=== PATIENT | male | born 1970 | race Caucasian/White ===

== ENCOUNTER 2017-10-14 17:11 | Emergency (ER) | payer OTHER ==
[~2017-10-14] VITALS: Ht 172.7 cm; Wt 77.1 kg
[~2017-10-14 17:11] MED LIST: AMPICILLIN TRI500 MG PO; CATAFLAM50 MG PO; PERCOCET 5/3251 TAB PO; POLY119PG PO
[2017-10-14] MEDS ORDERED: LOSARTAN POTASS25 MG (18:24)
[2017-10-14] MEDS ORDERED: [UNRECOGNIZED DRUG - OTHER] (18:25)
== END 2017-10-14 20:52 | disposition home or self-care (01) ==
LOC: ER 17:11
DX: B34.9 Viral infection, unspecified (principal); J11.1 Influenza due to unidentified influenza virus with other respiratory manifestations

== ENCOUNTER 2017-10-31 10:28 | Outpatient (CLI) | payer OTHER ==
[~2017-10-31 10:28] MED LIST changes: +LOSARTAN POTASS25 MG; +[UNRECOGNIZED DRUG - OTHER]
== END 2017-10-31 11:00 | disposition home or self-care (01) ==
LOC: LAB 10:28
DX: C90.00 Multiple myeloma not having achieved remission (principal); E78.1 Pure hyperglyceridemia; E21.2 Other hyperparathyroidism; E78.00 Pure hypercholesterolemia, unspecified; E03.8 Other specified hypothyroidism; E11.9 Type 2 diabetes mellitus without complications; A64 Unspecified sexually transmitted disease; E21.5 Disorder of parathyroid gland, unspecified; I10 Essential (primary) hypertension; R97.21 Rising PSA following treatment for malignant neoplasm of prostate

== ENCOUNTER 2017-10-31 11:50 | Outpatient (CLI) | payer OTHER | END 2017-10-31 15:00 | disposition home or self-care (01) | LOC: RAD 11:50 | DX: M54.2 Cervicalgia (principal) ==

== ENCOUNTER 2017-11-19 14:30 | Outpatient (CLI) | payer OTHER | END 2017-11-19 15:00 | disposition home or self-care (01) | LOC: NUCLEAR 14:30 | DX: M81.0 Age-related osteoporosis without current pathological fracture (principal) ==

== ENCOUNTER 2018-06-24 18:44 | Emergency (ER) | payer OTHER ==
[~2018-06-24] VITALS: Ht 172.7 cm; Wt 77.1 kg
== END 2018-06-24 22:42 | disposition home or self-care (01) ==
LOC: ER 18:44
DX: B34.9 Viral infection, unspecified (principal); J11.1 Influenza due to unidentified influenza virus with other respiratory manifestations

== ENCOUNTER 2018-08-03 15:57 | Emergency (ER) | payer OTHER ==
[~2018-08-03] VITALS: Ht 172.7 cm; Wt 74.8 kg
[2018-08-03] MEDS ORDERED: OSEL75CA PO (19:23)
[2018-08-03] MEDS ORDERED: PROMETHAZINE W473 ML PO (19:24)
== END 2018-08-03 19:49 | disposition home or self-care (01) ==
LOC: ER 15:57
DX: B34.9 Viral infection, unspecified (principal)

== ENCOUNTER 2018-11-09 17:25 | Emergency (ER) | payer OTHER ==
[~2018-11-09] VITALS: Ht 172.7 cm; Wt 75.7 kg
[~2018-11-09 17:25] MED LIST changes: +OSEL75CA PO; +PROMETHAZINE W473 ML PO
== END 2018-11-09 21:19 | disposition home or self-care (01) ==
LOC: ER 17:25
DX: S60.021A Contusion of right index finger without damage to nail, initial encounter (principal); W23.0XXA Caught, crushed, jammed, or pinched between moving objects, initial encounter; Y93.89 Activity, other specified; Y92.89 Other specified places as the place of occurrence of the external cause; Y99.8 Other external cause status

== ENCOUNTER 2019-05-25 17:23 | Emergency (ER) | payer OTHER ==
[~2019-05-25] VITALS: Ht 172.7 cm; Wt 72.6 kg
== END 2019-05-25 21:07 | disposition home or self-care (01) ==
LOC: ER 17:23
DX: B34.9 Viral infection, unspecified (principal)

== ENCOUNTER 2019-05-27 10:57 | Inpatient (IN) | payer OTHER ==
[~2019-05-27] VITALS: Ht 22.9 cm; Wt 77.1 kg
[2019-06-02] MEDS ORDERED: MONTELUKAST SOD10 MG PO (11:13)
[2019-06-02] MEDS ORDERED: PANTOPRAZOLE SO40 MG PO (11:13)
[2019-06-02] MEDS ORDERED: GENVOYA TABLET1 EACH PO (11:13)
[2019-06-02] MEDS ORDERED: ZOFRAN8 MG PO (17:24)
[2019-06-02] MEDS ORDERED: BALANCE B-1001 EACH PO (17:24)
[2019-06-02] MEDS ORDERED: MULTI-VITAMIN1 EACH PO (17:24)
== END 2019-06-02 17:51 | disposition home or self-care (01) | DRG 445 ==
LOC: ER 10:57 → SEC-K 21:06 → MEDJ 05-28 16:07 → SEC-K 05-28 16:19 → MEDJ 05-28 17:01
PROVIDERS: ADMIT Internal Medicine Cardiovascular Disease
PROC: BW21ZZZ Computerized Tomography (CT Scan) of Abdomen and Pelvis (ICD-10-PCS; principal; 2019-05-27)
PROC: BW40ZZZ Ultrasonography of Abdomen (ICD-10-PCS; 2019-05-27)
PROC: BF37ZZZ Magnetic Resonance Imaging (MRI) of Pancreas (ICD-10-PCS; 2019-05-28)
PROC: 8E0ZXY6 Isolation (ICD-10-PCS; 2019-05-28)
DX: K83.1 Obstruction of bile duct (principal); B20 Human immunodeficiency virus [HIV] disease; E80.6 Other disorders of bilirubin metabolism; N32.89 Other specified disorders of bladder

== ENCOUNTER → 2020-03-19 13:09 | Outpatient (CLI) | payer OTHER ==
[~2020-03-19 13:09] MED LIST changes: +BALANCE B-1001 EACH PO; +GENVOYA TABLET1 EACH PO; +MONTELUKAST SOD10 MG PO; +MULTI-VITAMIN1 EACH PO; +PANTOPRAZOLE SO40 MG PO; +ZOFRAN8 MG PO
== END | disposition home or self-care (01) ==
LOC: LAB 13:09 → RAD 13:09
PROVIDERS: ATTEND Internal Medicine Cardiovascular Disease
DX: I10 Essential (primary) hypertension (principal)

== ENCOUNTER 2021-03-17 15:42 | Outpatient (CLI) | payer OTHER | END 2021-03-17 15:49 | disposition home or self-care (01) | LOC: RAD 15:42 | PROVIDERS: ATTEND Internal Medicine Cardiovascular Disease | DX: I10 Essential (primary) hypertension (principal); R05 Cough ==

== ENCOUNTER 2022-08-19 15:20 | Emergency (ER) | payer OTHER ==
[~2022-08-19] VITALS: Ht 172.7 cm; Wt 70.3 kg
== END 2022-08-19 18:57 | disposition home or self-care (01) ==
LOC: ER 15:20
DX: R51.9 Headache, unspecified (principal)

== ENCOUNTER 2022-10-31 13:33 | Outpatient (CLI) | payer OTHER | END 2022-10-31 13:45 | disposition home or self-care (01) | LOC: SONOGRAMA 13:33 | DX: B20 Human immunodeficiency virus [HIV] disease (principal); N20.0 Calculus of kidney ==

== ENCOUNTER 2022-12-18 08:54 | Outpatient (CLI) | payer OTHER | END 2022-12-18 09:07 | disposition home or self-care (01) | LOC: SONOGRAMA 08:54 | DX: N42.0 Calculus of prostate (principal) ==

== ENCOUNTER 2023-03-20 12:52 | Outpatient (CLI) | payer OTHER | END 2023-03-20 12:55 | disposition home or self-care (01) | LOC: LAB 12:52 | DX: R10.30 Lower abdominal pain, unspecified (principal) ==

== ENCOUNTER 2023-03-26 07:37 | Outpatient (CLI) | payer OTHER | END 2023-03-26 07:44 | disposition home or self-care (01) | LOC: TOM 07:37 | PROVIDERS: ATTEND Internal Medicine Cardiovascular Disease | DX: N20.2 Calculus of kidney with calculus of ureter (principal) ==

== ENCOUNTER 2023-06-06 16:16 | Emergency (ER) | payer OTHER ==
[~2023-06-06] VITALS: Ht 172.7 cm; Wt 68.9 kg
[2023-06-06] MEDS ORDERED: BIKTARVY 30-121 EACH (16:40)
[2023-06-06 19:06] LABS: HEMATOCRIT 45.1 % (39.0-48.0); HEMOGLOBIN 15.2 g/dL (13-16.00); MEAN CELL VOLUME 94.3 fL (80.0-100.00); MEAN CORPUSCULAR HEMOGLOBIN 31.7 pg (27.00-32.0); MEAN CORPUSCULAR HGB CONC 33.6 g/dl (32.0-36.0); PLATELET COUNT 164 K/uL (150-450); RED BLOOD COUNT 4.79 M/uL (4.00-6.00); RED CELL DISTRIBUTION WIDTH 14.5 % (11.5-14.5)
== END 2023-06-06 19:58 | disposition home or self-care (01) ==
LOC: ER 16:16
PROVIDERS: General Practice
DX: J11.1 Influenza due to unidentified influenza virus with other respiratory manifestations (principal); Z20.822 Contact with and (suspected) exposure to COVID-19; I10 Essential (primary) hypertension

== ENCOUNTER 2024-11-07 16:13 | Emergency (ER) | payer OTHER ==
[~2024-11-07] VITALS: Ht 172.7 cm; Wt 79.4 kg
[~2024-11-07 16:13] MED LIST changes: +BIKTARVY 30-121 EACH
[2024-11-07] MEDS ORDERED: KETOROLAC TROMETHAMINE 60 MG VIAL IM STA (16:50)
[2024-11-07] MEDS ORDERED: KETOROLAC TROMETHAMINE 60 MG VIAL IM ONE (17:15)
[2024-11-07 17:34] LABS: HEMATOCRIT 45.2 % (39.0-48.0); HEMOGLOBIN 15.8 g/dL (13-16.00); MEAN CELL VOLUME 92.9 fL (80.0-100.00); MEAN CORPUSCULAR HEMOGLOBIN 32.5 pg (27.00-32.0); MEAN CORPUSCULAR HGB CONC 34.9 g/dl (32.0-36.0); PLATELET COUNT 230 K/uL (150-450); RED BLOOD COUNT 4.87 M/uL (4.00-6.00); RED CELL DISTRIBUTION WIDTH 14.3 % (11.5-14.5)
== END 2024-11-07 19:03 | disposition home or self-care (01) ==
LOC: ER 16:14
DX: G44.209 Tension-type headache, unspecified, not intractable (principal); Z20.822 Contact with and (suspected) exposure to COVID-19; I10 Essential (primary) hypertension

== ENCOUNTER 2025-01-25 16:18 | Emergency (ER) | payer OTHER ==
[~2025-01-25] VITALS: Ht 172.7 cm; Wt 78.9 kg
[2025-01-25] MEDS ORDERED: GUAIFENESIN/DEXTROMETHORPHAN 100MG/10ML BLIST.PACK PO ONE ×2 (20:30→20:31)
[2025-01-25] MEDS ORDERED: CETIRIZINE HCL 5 MG/5 ML ML PO ONE (20:30)
[2025-01-25] MEDS ORDERED: ENALAPRILAT DIHYDRATE 1.25 MG/ML VIAL IV ONE ×2 (20:30)
[2025-01-25] MEDS ORDERED: CETIRIZINE HCL 5MG/5ML BLIST.PACK PO ONE (20:31)
[2025-01-25 20:54] LABS: BASO % 0.8 % (0.1-1.2); HEMATOCRIT 46.5 % (40.1-51.0); HEMOGLOBIN 15.9 g/dL (13.7-17.5); LYMPH # 1.87 (1.18-3.74); LYMPH % 21.3 % (19.3-53.1); MEAN CORPUSCULAR HEMOGLOBIN 30.8 pg (25.6-32.2); MONO # 1.14 (0.24-0.82); NEUT % 56.7 % (34.0-71.1); PLATELET COUNT 252 K/uL (163-369); RED BLOOD COUNT 5.16 M/uL (4.63-6.08)
[2025-01-25 21:21] LABS: INFLUENZA A AG NEGATIVE (NEGATIVE); INFLUENZA B AG NEGATIVE (NEGATIVE)
[2025-01-25 21:29] LABS: ALBUMIN 4.2 gm/dL (3.4-5.0); BILIRUBIN TOTAL 0.87 mg/dL (0.3-1.2); CALCIUM 9.3 mg/dL (8.5-10.1); CREATININE SERUM 1.21 mg/dL (0.70-1.30); GFR 62.97; GLOBULINA 4.2 G/DL (2.4-3.5); POTASSIUM 4.33 mEq/L (3.5-5.1); TOTAL PROTEIN 8.4 gm/dL (6.4-8.2)
[2025-01-25 21:35] LABS: COVID-19 AG NEGATIVE (NEGATIVE)
[2025-01-25] MEDS ORDERED: ZYRTEC10 MG PO (22:41)
[2025-01-25] MEDS ORDERED: TUSSIN DM LIQU118 ML PO (22:41)
[2025-01-25] MEDS ORDERED: AMOX-CLAV 875-1 EACH PO (22:41)
== END 2025-01-25 22:53 | disposition home or self-care (01) ==
LOC: ER 16:18
PROVIDERS: Preventive Medicine Public Health & General Preventive Medicine
DX: J06.9 Acute upper respiratory infection, unspecified (principal); I10 Essential (primary) hypertension; J32.0 Chronic maxillary sinusitis; B20 Human immunodeficiency virus [HIV] disease; Z20.822 Contact with and (suspected) exposure to COVID-19

== ENCOUNTER 2025-04-15 09:43 | Outpatient (CLI) | payer OTHER ==
[~2025-04-15 09:43] MED LIST changes: +AMOX-CLAV 875-1 EACH PO; +TUSSIN DM LIQU118 ML PO; +ZYRTEC10 MG PO
== END 2025-04-15 09:50 | disposition home or self-care (01) ==
LOC: RAD 09:43
DX: J32.9 Chronic sinusitis, unspecified (principal); J21.9 Acute bronchiolitis, unspecified